=== PATIENT | male | born 1980 | race African-American/Black ===

== ENCOUNTER 2017-01-04 10:45 | Emergency (ER) | payer OTHER ==
[2017-01-04] MEDS ORDERED: Ibuprofen TAB* 800 MG PO ONE ×2 (11:07→11:12)
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
[2017-01-04 12:12] VITALS: BP 138/83
== END 2017-01-04 12:10 | disposition home or self-care (01) ==
LOC: ED 10:45
DX: S01.511A Laceration without foreign body of lip, initial encounter (principal); S01.412A Laceration without foreign body of left cheek and temporomandibular area, initial encounter; S01.21XA Laceration without foreign body of nose, initial encounter; W45.8XXA Other foreign body or object entering through skin, initial encounter; Y93.9 Activity, unspecified; Y92.149 Unspecified place in prison as the place of occurrence of the external cause
CPT/HCPCS: 13131; 99282; A9270-GY